=== PATIENT | female | born 1960 | race American Indian/Alaskan Native ===

== ENCOUNTER 2024-07-17 17:41 | Emergency (ER) | payer BC, OTHER ==
[~2024-07-17] VITALS: Ht 154.9 cm; Wt 61.7 kg
[2024-07-17] MEDS ORDERED: METOPROLOL SUCC50 MG PO (18:19)
[2024-07-17] MEDS ORDERED: ROSUVASTATIN CA40 MG (18:19)
[2024-07-17] MEDS ORDERED: LISINOPRIL10 MG PO (18:19)
[2024-07-17] MEDS ORDERED: OMEPRAZOLE20 MG PO (18:19)
[2024-07-17 18:37] LABS: BASOPHILS 0.3 % (0-2); EOSINOPHILS 0.3 % (0-6); HEMATOCRIT 44.9 % (35.0-50.0); HEMOGLOBIN 15.3 g/dL (12.0-18.0); LYMPHOCYTES 17.7 % (24-44); MCH 28.7 (27-36); MCHC 34.2 g/dl (30-36); MONOCYTES 10.5 % (0-12); NEUTROPHILS 71.2 % (39-80); PLATELET COUNT 381 K/uL (140-440); RBC 5.34 M/ul (4.3-5.7); RDW 14.5 (10.5-15.0)
[2024-07-17] MEDS ORDERED: SODIUM CHLORIDE 0.9% 1,000 ML IV PRN (18:45)
[2024-07-17 18:54] LABS: ALBUMIN/GLOBULIN RATIO 0.68 (1.1-2.4); ANION GAP 12.8 (7-21); BILIRUBIN, TOTAL 0.9 mg/dL (0.2-1.0); BUN/CREATININE RATIO 21.34 (6.0-28.6); CALCIUM 9.1 mg/dL (8.5-10.1); CREATININE, SERUM 0.89 mg/dL (0.55-1.02); POTASSIUM 2.8 mmol/L (3.5-5.1); PROTEIN, TOTAL 7.4 g/dL (6.4-8.2)
[2024-07-17 18:57] LABS: LACTIC ACID, BLOOD 1.4 mmol/L (0.4-2.0)
[2024-07-17 19:56] LABS: CORONAVIRUS COVID-19 AG NEGATIVE (NEGATIVE); INFLUENZA A AG NEGATIVE (NEGATIVE); INFLUENZA B AG NEGATIVE (NEGATIVE)
[2024-07-17] MEDS ORDERED: methylPREDNISolone SOD SUCC 125 MG/2 ML VIAL IV ONE (20:15)
[2024-07-17] MEDS ORDERED: CEFTRIAXONE SODIUM 2 GM in SODIUM CHLORIDE 0.9% 100 ML IV ONE (20:15)
[2024-07-17] MEDS ORDERED: POTASSIUM CHLORIDE 10 MEQ TABCR PO ONE ×2 (20:15→22:30)
[2024-07-17] MEDS ORDERED: AZITHROMYCIN 250 MG TAB PO ONE (20:15)
[2024-07-17] MEDS ORDERED: ALBUTEROL/IPRATROPIUM 3 ML NEB INH ONE (20:15)
[2024-07-17 20:27] LABS: BILIRUBIN, URINE POSITIVE (negative); BLOOD/HGB, URINE SMALL (Negative); KETONE, URINE TRACE (Negative); LEUK ESTERASE, URINE NEGATIVE (negative); NITRITE, URINE NEGATIVE (negative)
[2024-07-17 20:37] LABS: BACTERIA, URINE RARE /hpf (negative); CASTS, URINE HYALINE 1+ \\lpf; CRYSTALS, URINE NONE SEEN (0-1+); EPITHELIAL CELLS, URINE SQUAMOUS 2+ /lpf (0-1+); REFLEX CULTURE, URINE No (No); WHITE BLOOD CELLS, URINE 0-1 /HPF (0-5)
[2024-07-17 20:38] LABS: COLLECTION TYPE, URINE CLEAN CATCH
[2024-07-17] MEDS ORDERED: CEFDINIR300 MG PO (23:56)
[2024-07-17] MEDS ORDERED: ZITHROMAX250 MG PO (23:56)
[2024-07-18 00:12] VITALS: BP 124/75
--- NOTE | 2024-07-18 12:29 | EKG ---
[facility] [address] [facility] [place] [address] Signed Normal sinus rhythm Possible Left atrial enlargement Left axis deviation ST \T\ T wave abnormality, consider anterolateral ischemia Abnormal ECG When compared with ECG of 12-AUG-2016 13:52, T wave inversion now evident in Anterolateral leads Confirmed by Ashely Martinez MD () on 07/18/2024 12:29:27 PM Electronically Signed By: ASHELY MARTINEZ MD 07/18/24 1229 PATIENT NAME: LAURENT PARIKH HARITHA Electrocardiogram DATE OF : 60 PHYSICIAN: ASHELY MARTINEZ MD REPORT #: [id number] REPORT IS CONFIDENTIAL AND NOT TO BE RELEASED WITHOUT AUTHORIZATION
== END 2024-07-18 00:16 | disposition home or self-care (01) ==
LOC: ED 17:41
PROVIDERS: Emergency Medicine; Internal Medicine
DX: J18.9 Pneumonia, unspecified organism (principal); Z88.1 Allergy status to other antibiotic agents; Z88.5 Allergy status to narcotic agent; Z79.899 Other long term (current) drug therapy
CPT/HCPCS: 36415; 71045; 71260; 80053; 81001; 83605; 83735; 83880; 84484; 85025; 85379; 87040; 93005; 93010; 94640; 99285-25; A9270; J0696; J2919; J7030; Q9967